=== PATIENT | male | born 1990 | race Caucasian/White ===

== ENCOUNTER 2017-01-12 22:46 | Emergency (ER) | payer OTHER ==
[2017-01-12 22:57] VITALS: BP 144/97
[2017-01-12] MEDS ORDERED: Acetaminophen 325 MG Tab PO ONE (23:15)
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
[2017-01-13] MEDS ORDERED: Ibuprofen 600 MG Tab PO ONE (00:26)
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
--- NOTE | 2017-01-13 07:44 | CT ---
Head CT Technique: Multiple axial sections through the brain were obtained. Intravenous contrast was not utilized. Comparison: No previous intracranial imaging is available. Findings: Ventricles along with basal cisterns and sulci over the convexities are within normal limits for the patient's age. No abnormal parenchymal densities are seen. No evidence of intracranial hemorrhage. No midline shift or mass effect is seen. Slight mucosal thickening and or small retention cyst is incidentally noted within the right maxillary sinus. Minimal mucosal thickening is seen within the left maxillary sinus. No acute calvarial abnormality is seen. Impression: 1. Minimal sinus findings which are felt to be incidental. 2. No acute intracranial abnormality is identified. Diagnostic code #2 I agree with preliminary report issued by [facility] ([facility] preliminary report dictated on 01/13/17, 12:16 AM Central Time)
--- NOTE | 2017-01-13 07:44 | CT ---
CT cervical spine Technique: Multiple axial sections were obtained from above C1 inferiorly to the bottom of T2. Reconstructed sagittal and coronal images were reviewed. Comparison: No previous cervical spine imaging. Findings: Mastoid sinuses and middle ear cavities are clear. Posterior skull base is intact. Vertebral body and posterior arches are intact with no fracture being seen. No bony central or bony neural foraminal stenosis is identified. No abnormal subluxation is seen on the reconstructed sagittal images. Impression: 1. Nothing acute is identified on CT study of the cervical spine. Diagnostic code #1 I agree with preliminary report issued by [facility] ([facility] preliminary report dictated on 01/13/17, 12:16 AM Central Time)
== END 2017-01-13 01:45 | disposition home or self-care (01) ==
LOC: EDBD 22:46 → MERGE 22:46 → JD.ED 22:46
DX: S60.811A Abrasion of right wrist, initial encounter (principal); M79.1 Myalgia; E78.00 Pure hypercholesterolemia, unspecified; F41.9 Anxiety disorder, unspecified; F32.9 Major depressive disorder, single episode, unspecified; E10.9 Type 1 diabetes mellitus without complications; Z90.49 Acquired absence of other specified parts of digestive tract; Z79.4 Long term (current) use of insulin; Z79.899 Other long term (current) drug therapy; V40.5XXA Car driver injured in collision with pedestrian or animal in traffic accident, initial encounter
CPT/HCPCS: 36415; 70450; 71020; 72125; 82962; 83690; 99285; A9270; 99284